=== PATIENT | female | born 1945 | race Caucasian/White ===

== ENCOUNTER 2016-02-27 06:01 | Inpatient (IN) | payer OTHER ==
[2016-02-27] MEDS ORDERED: LIDOCAINE 1% 5 ML SDV ONE (06:20)
[2016-02-27] MEDS ORDERED: TRANEXAMIC ACID 3,000 MG/50 ML BAG IRR ONE (06:39)
[2016-02-27] MEDS ORDERED: SKIN ADHESIVE (DERMABOND) 1 EACH TP ONE (06:39)
[2016-02-27] MEDS ORDERED: VANCOMYCIN 1 GM VIAL IV ONE ×2 (06:40)
[2016-02-27] MEDS ORDERED: LIDOCAINE 1% 5 ML SDV ID PRN (06:44)
[2016-02-27] MEDS ORDERED: LR 1,000 ML IV ONE (06:44)
[2016-02-27] MEDS ORDERED: MIDAZOLAM 2 MG/2 ML VIAL ONE (06:57)
[2016-02-27] MEDS ORDERED: ACETAMINOPHEN 325 MG TAB PO ONE (07:00)
[2016-02-27] MEDS ORDERED: CEFAZOLIN 2 GM/DEXTR 100 ML IV ONE (07:00)
[2016-02-27] MEDS ORDERED: CHLORHEXIDINE GLUC HIBICLENS 118 ML BTL TP ONE (07:00)
[2016-02-27] MEDS ORDERED: FAMOTIDINE 20 MG TAB PO ONE (07:00)
[2016-02-27] MEDS ORDERED: TRANEXAMIC ACID 3,000 MG in NS 50 ML IRR ONE (07:00)
[2016-02-27] MEDS ORDERED: DEXAMETHASONE 4 MG/ML VIAL IVP ONE (07:00)
[2016-02-27] MEDS ORDERED: ROPI/epiNEPH/KETOROLAC JOINT COCKTAIL IU ONE (07:00)
[2016-02-27] MEDS ORDERED: BUPIVACAINE 0.25% 30 ML SDV ONE (07:07)
[2016-02-27] MEDS ORDERED: DEXAMETHASONE 4 MG/ML VIAL ONE (07:09)
[2016-02-27] MEDS ORDERED: fentaNYL 100 MCG/2 ML INJ ONE (07:09)
[2016-02-27] MEDS ORDERED: ONDANSETRON 4 MG/2 ML VIAL ONE (07:09)
[2016-02-27] MEDS ORDERED: PROPOFOL/EMULSION 500 MG/50 ML BOTTLE IV ONE (07:09)
[2016-02-27] MEDS ORDERED: LIDOCAINE 2% JELLY 5 ML TUBE ONE (07:22)
[2016-02-27] MEDS ORDERED: PROPOFOL 200 MG/20 ML VIAL ONE (08:08)
[2016-02-27] MEDS ORDERED: LACTULOSE 20 GM/30 ML UDCUP PO PRN (08:41)
[2016-02-27] MEDS ORDERED: ONDANSETRON DISINTEGRATING 4 MG TAB PO PRN (08:41)
[2016-02-27] MEDS ORDERED: PROMETHAZINE HCL 25 MG/ML INJ IVP PRN (08:41)
[2016-02-27] MEDS ORDERED: PROMETHAZINE HCL 25 MG SUPPR PR PRN (08:41)
[2016-02-27] MEDS ORDERED: TEMAZEPAM 15 MG CAP PO PRN (08:41)
[2016-02-27] MEDS ORDERED: PHARMACY PAIN CONSULT 1 EA MISC PRN (08:41)
[2016-02-27] MEDS ORDERED: POLYETHYLENE GLYCOL 3350 17 GM PKT PO PRN (08:41)
[2016-02-27] MEDS ORDERED: MAGNESIUM HYDROXIDE 30 ML UDCUP PO PRN (08:41)
[2016-02-27] MEDS ORDERED: BISACODYL 10 MG SUPP PR PRN (08:41)
[2016-02-27] MEDS ORDERED: CYCLOBENZAPRINE 10 MG TAB PO PRN (08:41)
[2016-02-27] MEDS ORDERED: METOCLOPRAMIDE 10 MG/2 ML VIAL IVP PRN (08:41)
[2016-02-27] MEDS ORDERED: diphenhydrAMINE 25 MG CAP PO PRN (08:41)
[2016-02-27] MEDS ORDERED: ONDANSETRON 4 MG/2 ML VIAL IVP PRN (08:41)
[2016-02-27] MEDS ORDERED: DIPHENOXYLATE/ATROPINE LOMOTIL 1 TAB PO PRN (08:41)
--- NOTE | 2016-02-27 08:41 | POSTOPPROG ---
Post Op Note Date of Operation: 02/27/16 Surgeon: Karthikeyan Pate Copy Clerk: mason pate Anesthesiologist: dr. ospina Anesthesia: Spinal, Other (Specify) (adductor canal block) Pre-op Diagnosis: left knee OA Post-op Diagnosis: same Indication: left knee pain due to OA that failed conservative measures Procedure: L TKA Findings: severe knee OA Inf/Abcess present in the surg proc area at time of surgery?: No EBL: 50-100
[2016-02-27] MEDS ORDERED: BUPIVACAINE/EPI 0.5% 30 ML SDV ONE (08:46)
[2016-02-27] MEDS ORDERED: BUPIVACAINE 0.5% 30 ML SDV ONE (08:47)
--- NOTE | 2016-02-27 09:55 | DX ---
Left knee, 2 views. HISTORY: Left knee pain. Status post left knee arthroplasty. Post operative evaluation. FINDINGS: Postsurgical changes as seen of a left total knee arthroplasty. There is good alignment in appearance. No evidence for periprosthetic lucency or fracture. There is appropriate soft tissue davis ge for the immediate postsurgical appearance. IMPRESSION: Post surgical changes of left total knee arthroplasty with good alignment and appearance.
[2016-02-27] MEDS: oxyCODONE IR 5 MG TAB PO PRN ×5 (10:23→22:33)
[2016-02-27] MEDS: LR 1,000 ML IV SCH ×2 (10:24→20:57)
[2016-02-27] MEDS: SENNOSIDES/DOCUSATE SODIUM TAB PO SCH ×2 (10:28→20:53)
[2016-02-27] MEDS: ACETAMINOPHEN 325 MG TAB PO SCH ×3 (11:03→23:44)
[2016-02-27] MEDS: ceFAZolin 2 GM/DEXTROSE 100 ML IV SCH ×2 (14:28→20:57)
[2016-02-27] MEDS: ASPIRIN 325 MG TAB PO SCH (20:53)
[2016-02-27] MEDS: FAMOTIDINE 20 MG TAB PO SCH (20:53)
--- NOTE | 2016-02-28 02:46 | GOP ---
[f rep st] OPERATIVE REPORT DATE OF OPERATION: 02/27/2016 SURGEON: Lorin Shields MD CASH APPLICATIONS ASSOCIATE: KEYUR Farrell. ANESTHESIA: Spinal. PREOPERATIVE DIAGNOSIS: Right knee osteoarthritis. POSTOPERATIVE DIAGNOSIS: Right knee osteoarthritis. PROCEDURE PERFORMED: Right total knee arthroplasty. FINDINGS: ESTIMATED BLOOD LOSS: 30 cc. INDICATIONS: This is a 70-year-old female with severe and progressive pain and deformity of the righ t knee unresponsive to conservative care. Risks and benefits of the surgical intervention were expla ined in detail. DESCRIPTION OF PROCEDURE: The patient was brought to the operative room and placed on the table in t he supine position. Spinal anesthesia was induced without difficulty. A pneumatic tourniquet was ap plied about the right proximal thigh, and the leg was prepped and draped in a sterile fashion. The l eg villela was applied. After exsanguination by elevation the tourniquet was inflated to 300 mm of me rcury. Incision was made anterior medial from the tibial tuberosity to a point 6 cm proximal to the superior pole of the patella. Medial parapatellar arthrotomy was carried out from the superior pole of the p atella and posteriorly in line with the fibers of the Type II VMO. The medial collateral ligament wa s elevated and the infrapatellar fat pad was resected. The patella was everted and the articular surface was excised. A 35 mm patellar button was placed. T distal femoral guide hole was drilled and the 6-degree alignment angie was placed. A 10 mm distal f emoral cut was made without difficulty. Attention was turned to the tibia and a standard 9 mm cut based on the lateral tibial condyle was per formed. The tibial articular surface was excised without difficulty. Attention was turned back to the femur and a size 5 Journey Deuce femoral cutting block was positione d. Anterior, posterior, and chamfer cuts were made, followed by the intercondylar box cut. The knee was extended and the remnants of the medial and lateral meniscus were excised. The posterio r capsule was injected with ropivacaine, epinephrine and Toradol. A size 4 Journey tibial tray was p ositioned. Trial reduction was then carried out. There was excellent range of motion, alignment, an d stability using the 9 mm polyethylene. All trials were then removed. The joint was thoroughly irrigated and carefully dried. Two packages of cement and 2 grams of vancomycin were mixed in the vacuum mixer and placed on the fixation surface s of all surfaces of the components. The components were implanted and all excess cement was thoroug hly removed. The permanent 9 mm polyethylene was placed without difficulty. The tourniquet was deflated and all bleeders were coagulated. The wound was thoroughly irrigated and closed using interrupted sutures of 2-0 Vicryl for the joint capsule. The subcu was closed with 3-0 Vicryl and the skin with 4-0 Monocryl. Dermabond and Steri-Strips were applied followed by a compre ssive dressing. The patient was then moved from the operating room to the recovery room in good cond ition, having tolerated the procedure well. /[id number]/MODL
[2016-02-28 05:06] LABS: HEMATOCRIT 35.1 % (38.0-47.0); HEMOGLOBIN 12.5 g/dL (12.6-16.3)
[2016-02-28] MEDS: ACETAMINOPHEN 325 MG TAB PO SCH (05:39)
[2016-02-28 07:48] VITALS: BP 109/54; PULSE 73; RESP 14; TEMP 97.9; O2SAT 98
[2016-02-28] MEDS: oxyCODONE IR 5 MG TAB PO PRN (08:51)
[2016-02-28] MEDS: SENNOSIDES/DOCUSATE SODIUM TAB PO SCH (08:51)
[2016-02-28] MEDS: ASPIRIN 325 MG TAB PO SCH (08:52)
[2016-02-28] MEDS: FAMOTIDINE 20 MG TAB PO SCH (08:52)
[2016-02-28] MEDS ORDERED: FLUoxetine 20 MG CAP PO SCH (09:00)
[2016-02-28] MEDS ORDERED: NATURE THYROID PO SCH ×2 (09:00)
--- NOTE | 2016-02-28 10:14 | SOAPPROG ---
SOAP Progress Note Assessment/Plan: Assessment: Maci is doing well POD 1 s/p L TKA 1. pain management: pain well controlled on oral pain medications. 2. VTE ppx: recommend ASA 325 mg daily. cont SELMA parsons 3. Anemia: level is expected initially postop. asymptomatic. 4. d/c planning: d/c to home today. Plan: 02/28/16 10:12 Subjective: Maci is doing well today, denies SOB, chest pain and NV. Objective: Vital Signs Temp Pulse Resp BP Pulse Ox 36.6 C 73 14 109/54 L 98 02/28/16 07:45 02/28/16 07:45 02/28/16 07:45 02/28/16 07:45 02/28/16 07:45 Laboratory Results 02/28/16 04:15 02/27/16 02/28/16 02/29/16 05:59 05:59 05:59 Intake Total 4737 Output Total 2600 500 Balance 2137 -500 LLE: incision dressing is clean and dry, NVI, +pf/df ICD10 Worksheet Patient Problems: Problems Problem Status Diagnosed Primary localized osteoarthritis of left knee Acute
--- NOTE | 2016-03-04 10:27 | GDS ---
[f rep st] DISCHARGE SUMMARY ADMISSION DIAGNOSIS: Left knee osteoarthritis. DISCHARGE DIAGNOSIS: Left knee osteoarthritis. PROCEDURE: Left total knee arthroplasty. VTE PROPHYLAXIS: Aspirin recommended for 3 weeks daily. BRIEF DESCRIPTION OF HOSPITAL STAY: Patient was admitted for an elective joint arthroplasty. The pa tient tolerated the procedure well and has passed physical therapy. The patient was given appropriat e antibiotic prophylaxis and venous thromboembolism prophylaxis. The patient's pain was well control led on oral pain medication, patient was holding down food, and had urinated. Decision was made to d ischarge the patient. The patient was given post-operative prescriptions pre-operatively. PLAN: To follow up with Dr. Shields at [facility] [place] [place] for Orthopedics in 2 to 3 weeks. /[id number]/MODL
== END 2016-02-28 11:33 | disposition home or self-care (01) | DRG 470 ==
LOC: F3E 06:01 → F3N 10:00
PROVIDERS: ADMIT Orthopaedic Surgery; ATTEND Orthopaedic Surgery
PROC: 0SRD0J9 Replacement of Left Knee Joint with Synthetic Substitute, Cemented, Open Approach (ICD-10-PCS; principal; 2016-02-27 07:15)
DX: M17.12 Unilateral primary osteoarthritis, left knee (principal); E03.9 Hypothyroidism, unspecified
CPT/HCPCS: 97110-GP; 97116-GP; 97161-GP; 97530-GP; C1713; G8978-GP-CJ; G8979-GP-CI; G8980-GP-CI; J0171; J0690; J1100; J1885; J2250; J2405; J2704; J2795; J3010; J3370